=== PATIENT | male | born 1985 | race Caucasian/White ===

== ENCOUNTER → 2018-02-26 07:20 | Outpatient (CLI) | payer MEDICARE ==
[2015-12-24 17:46] VITALS: BMI 23.7
[~2018-02-26 07:20] MED LIST: BUPRENORPHIN-N1 EACH SL; DILAUDID4 MG PO; ELIQUIS2.5 MG PO
== END | disposition home or self-care (01) ==
LOC: D.MRI 02-23 13:00
DX: M54.16 Radiculopathy, lumbar region (principal)

== ENCOUNTER 2021-03-14 10:43 | Emergency (ER) | payer MEDICARE ==
[~2021-03-14] VITALS: Ht 180.3 cm; Wt 77.3 kg
[2021-03-14 10:47] VITALS: Ht 180.3 cm; Wt 77.3 kg
[2021-03-14 11:30] LABS: BASOPHILS 0.4 % (0-2); EOSINOPHILS 0.4 % (0-7); HEMATOCRIT 52.6 % (42.0-54.0); HEMOGLOBIN 17.9 g/dL (13.5-17.5); LYMPHOCYTES 27.2 % (15-50); MCH 30.2 pg (26.0-34.0); MCHC 34.1 g/dL (31.0-37.0); MCV 88.7 fL (80.0-100.0); MEAN PLATELET VOLUME 6.2 fL (7.4-10.4); MONOCYTES 7.5 % (2-11); NEUTROPHILS 64.5 % (40-80); RBC 5.93 10x6/uL (4.20-6.10); RDW 14.7 % (11.5-14.5)
[2021-03-14 11:36] LABS: PLATELET COUNT 448 10x3/uL (130-400)
[2021-03-14 11:44] LABS: CALC OSMOLALITY 263 mosm/kg (275-300); CALCIUM 9.9 mg/dL (8.5-10.1); CARBON DIOXIDE 21.1 mmol/L (21.0-32.0); CHLORIDE - SERUM 92 mmol/L (98-107); CREATININE - SERUM 0.9 mg/dL (0.6-1.3); GLUCOSE 92 mg/dL (74-106); POTASSIUM - SERUM 3.8 mmol/L (3.5-5.1); SODIUM 131 mmol/L (136-145); UREA NITROGEN 14 mg/dL (7-18); eGFR NON AFRICAN AMERICAN > 90 mL/min (90-120)
[2021-03-14 11:50] LABS: ALBUMIN 4.7 g/dL (3.4-5.0); ALKALINE PHOSPHATASE 76 U/L (30-120); ALT (SGPT) 44 U/L (10-68); AMYLASE - SERUM 47 U/L (25-115); BILIRUBIN - TOTAL 0.71 mg/dL (0.2-1.3); LIPASE 88 U/L (73-393); PROTEIN - SERUM 9.1 g/dL (6.4-8.2)
[2021-03-14 13:39] LABS: BACTERIA FEW HPF (<MOD); BILIRUBIN NEGATIVE (NEGATIVE); GRANULAR CAST 3 LPF (0-1); KETONE 1+ mg/dL (< 1+); NITRITE NEGATIVE (NEGATIVE); PH 5.5 (5.0-8.0); UROBILINOGEN NORMAL mg/dL (< 2); WAXY CAST 1 LPF (0-1); WHITE CELLS - URINE 2 HPF (0-1)
[2021-03-14] MEDS ORDERED: HYDROCODONE-AC1 EAC2 PO (16:03)
[2021-03-14] MEDS ORDERED: LEVAQUIN750 MG PO (16:03)
== END 2021-03-14 16:32 | disposition home or self-care (01) ==
LOC: D.ER 10:43
PROVIDERS: Emergency Medicine
DX: N20.0 Calculus of kidney (principal); R10.30 Lower abdominal pain, unspecified